=== PATIENT | female | born 1930 | race Caucasian/White ===

== ENCOUNTER → 2016-08-03 | Outpatient (CLI) | payer MEDICARE ==
--- NOTE | 2016-08-03 11:54 | NM ---
EXAMINATION TYPE: NM thyroid image only DATE OF EXAM: 08/03/2016 11:49 AM COMPARISON: NONE HISTORY: Thyroid nodule TECHNIQUE: After the intravenous administration of 10.2 mCi Tc 99m Sodium Pertechnetate. FINDINGS: There is a large, cold nodule in the lower pole of the right lobe of the thyroid. This was visualized on a recent CT scan of the chest. IMPRESSION: Large, cold lesion in the lower pole of the right lobe of the thyroid. This is suspicious. A thyroid ultrasound would be suggested. Biopsy will likely be required.
== END | disposition home or self-care (01) ==
LOC: RADNMMAIN 11:05
PROVIDERS: ATTEND Surgery
DX: E07.89 Other specified disorders of thyroid (principal)
CPT/HCPCS: 84443; 36415; 78013; A9512